=== PATIENT | male | born 1945 | race Two or more races ===

== ENCOUNTER → 2018-02-02 06:51 | Outpatient (CLI) | payer OTHER | END | disposition home or self-care (01) | LOC: LAB 06:51 | DX: D70.8 Other neutropenia (principal); D70.2 Other drug-induced agranulocytosis; D51.1 Vitamin B12 deficiency anemia due to selective vitamin B12 malabsorption with proteinuria; E55.9 Vitamin D deficiency, unspecified; F10.182 Alcohol abuse with alcohol-induced sleep disorder; K31.83 Achlorhydria; K76.1 Chronic passive congestion of liver; D50.8 Other iron deficiency anemias; D51.8 Other vitamin B12 deficiency anemias; I10 Essential (primary) hypertension; E03.8 Other specified hypothyroidism; K75.89 Other specified inflammatory liver diseases ==

== ENCOUNTER → 2018-03-27 06:37 | Outpatient (CLI) | payer OTHER | END | disposition home or self-care (01) | LOC: LAB 06:37 | DX: D70.8 Other neutropenia (principal); D70.2 Other drug-induced agranulocytosis; D51.1 Vitamin B12 deficiency anemia due to selective vitamin B12 malabsorption with proteinuria; E55.9 Vitamin D deficiency, unspecified; F10.182 Alcohol abuse with alcohol-induced sleep disorder; K31.83 Achlorhydria; K76.1 Chronic passive congestion of liver; K75.89 Other specified inflammatory liver diseases; N34.2 Other urethritis; C61 Malignant neoplasm of prostate; C18.9 Malignant neoplasm of colon, unspecified; C25.9 Malignant neoplasm of pancreas, unspecified; N40.1 Benign prostatic hyperplasia with lower urinary tract symptoms; F52.21 Male erectile disorder; R97.20 Elevated prostate specific antigen [PSA]; R31.9 Hematuria, unspecified ==

== ENCOUNTER 2018-03-30 08:45 | Outpatient (CLI) | payer OTHER | END 2018-03-30 08:49 | disposition home or self-care (01) | LOC: LAB 08:45 | DX: D51.1 Vitamin B12 deficiency anemia due to selective vitamin B12 malabsorption with proteinuria (principal) ==

== ENCOUNTER 2018-03-31 07:34 | Outpatient (CLI) | payer OTHER | END 2018-03-31 07:47 | disposition home or self-care (01) | LOC: TOM 07:34 | DX: D70.8 Other neutropenia (principal); D70.2 Other drug-induced agranulocytosis; D51.1 Vitamin B12 deficiency anemia due to selective vitamin B12 malabsorption with proteinuria; E55.9 Vitamin D deficiency, unspecified; F10.182 Alcohol abuse with alcohol-induced sleep disorder; K31.83 Achlorhydria; K76.1 Chronic passive congestion of liver; K75.9 Inflammatory liver disease, unspecified; R97.0 Elevated carcinoembryonic antigen [CEA] | CPT/HCPCS: 70450; 71270; 74178; Q9965 ==

== ENCOUNTER 2018-08-27 08:07 | Outpatient (CLI) | payer OTHER | END 2018-08-27 08:12 | disposition home or self-care (01) | LOC: LAB 08:07 | DX: I10 Essential (primary) hypertension (principal); R55 Syncope and collapse; A52.3 Neurosyphilis, unspecified; E03.8 Other specified hypothyroidism; E78.49 Other hyperlipidemia; R41.3 Other amnesia; E56.9 Vitamin deficiency, unspecified; M79.5 Residual foreign body in soft tissue ==

== ENCOUNTER 2018-09-02 07:53 | Outpatient (CLI) | payer OTHER | END 2018-09-02 09:11 | disposition home or self-care (01) | LOC: MRI 07:53 | DX: G30.1 Alzheimer's disease with late onset (principal) | CPT/HCPCS: 70551 ==

== ENCOUNTER 2018-12-08 07:26 | Outpatient (CLI) | payer OTHER | END 2018-12-08 07:45 | disposition home or self-care (01) | LOC: LAB 07:26 | DX: R63.4 Abnormal weight loss (principal); D70.2 Other drug-induced agranulocytosis; F10.182 Alcohol abuse with alcohol-induced sleep disorder; D51.1 Vitamin B12 deficiency anemia due to selective vitamin B12 malabsorption with proteinuria; K75.9 Inflammatory liver disease, unspecified; E55.9 Vitamin D deficiency, unspecified; D70.8 Other neutropenia; K31.83 Achlorhydria; K76.1 Chronic passive congestion of liver; D50.8 Other iron deficiency anemias; D51.8 Other vitamin B12 deficiency anemias; I10 Essential (primary) hypertension; E03.8 Other specified hypothyroidism; R97.8 Other abnormal tumor markers; R97.0 Elevated carcinoembryonic antigen [CEA]; N40.1 Benign prostatic hyperplasia with lower urinary tract symptoms; F52.21 Male erectile disorder ==

== ENCOUNTER 2018-12-18 07:07 | Outpatient (CLI) | payer OTHER | END 2018-12-18 07:16 | disposition home or self-care (01) | LOC: TOM 07:07 | DX: R91.1 Solitary pulmonary nodule (principal); R63.4 Abnormal weight loss; D70.2 Other drug-induced agranulocytosis; F10.182 Alcohol abuse with alcohol-induced sleep disorder; D51.1 Vitamin B12 deficiency anemia due to selective vitamin B12 malabsorption with proteinuria; K75.89 Other specified inflammatory liver diseases; E55.9 Vitamin D deficiency, unspecified; D70.8 Other neutropenia; K31.83 Achlorhydria; K76.1 Chronic passive congestion of liver | CPT/HCPCS: 71260; Q9965 ==

== ENCOUNTER → 2019-02-24 11:28 | Outpatient (CLI) | payer OTHER | END | disposition home or self-care (01) | LOC: LAB 11:28 | DX: E55.9 Vitamin D deficiency, unspecified (principal); Z12.11 Encounter for screening for malignant neoplasm of colon; Z12.9 Encounter for screening for malignant neoplasm, site unspecified ==

== ENCOUNTER 2019-06-23 07:11 | Outpatient (CLI) | payer OTHER | END 2019-06-23 15:29 | disposition home or self-care (01) | LOC: LAB 07:11 | DX: D70.2 Other drug-induced agranulocytosis (principal); R63.4 Abnormal weight loss; F10.182 Alcohol abuse with alcohol-induced sleep disorder; D51.1 Vitamin B12 deficiency anemia due to selective vitamin B12 malabsorption with proteinuria; K75.89 Other specified inflammatory liver diseases; E55.9 Vitamin D deficiency, unspecified; D70.8 Other neutropenia; K31.83 Achlorhydria; K76.1 Chronic passive congestion of liver; D51.8 Other vitamin B12 deficiency anemias; E03.8 Other specified hypothyroidism; C20 Malignant neoplasm of rectum; R97.0 Elevated carcinoembryonic antigen [CEA]; R91.1 Solitary pulmonary nodule; I10 Essential (primary) hypertension; D50.8 Other iron deficiency anemias; K90.89 Other intestinal malabsorption ==

== ENCOUNTER 2019-08-03 07:05 | Outpatient (CLI) | payer OTHER | END 2019-08-03 07:17 | disposition home or self-care (01) | LOC: LAB 07:05 | DX: F10.97 Alcohol use, unspecified with alcohol-induced persisting dementia (principal); D51.0 Vitamin B12 deficiency anemia due to intrinsic factor deficiency ==

== ENCOUNTER → 2019-08-19 | Outpatient (CLI) | payer OTHER | END | disposition home or self-care (01) | LOC: RX STUDY 08:03 | DX: R13.19 Other dysphagia (principal) ==

== ENCOUNTER 2020-02-19 18:54 | Inpatient (IN) | payer OTHER ==
[~2020-02-19] VITALS: Ht 167.6 cm; Wt 62.1 kg
[2020-02-19] MEDS ORDERED: COZAAR50 MG PO (19:09)
[2020-02-19] MEDS ORDERED: SYNTHROID50 MCG PO (19:09)
[2020-02-19] MEDS ORDERED: LOSARTAN POTASS50 MG (19:09)
[2020-02-24] MEDS ORDERED: TOPROL XL50 M1 PO (07:58)
[2020-02-24] MEDS ORDERED: ZYLOPRIM300 MG PO (07:58)
[2020-02-24] MEDS ORDERED: MEMANTINE HCL10 MG PO (07:58)
[2020-03-03] MEDS ORDERED: LOSARTAN POTASS50 MG PO (16:02)
[2020-03-03] MEDS ORDERED: Proventyl Hfa 200 ME IH (16:02)
[2020-03-03] MEDS ORDERED: NAMENDA10 MG PO (16:02)
[2020-03-03] MEDS ORDERED: CLONAZEPAM1 MG PO (16:02)
[2020-03-03] MEDS ORDERED: LEVOTHYROXINE50 MCG PO (16:02)
[2020-03-03] MEDS ORDERED: ZYLOPRIM100 M1 PO (16:02)
[2020-03-03] MEDS ORDERED: TOPROL XL50 M1 PO (16:02)
== END 2020-03-03 17:27 | disposition home or self-care (01) | DRG 194 ==
LOC: ER 18:54 → MEDJ 02-20 12:38 → SURH 02-24 12:57
PROVIDERS: ADMIT Internal Medicine; ATTEND Internal Medicine
PROC: BB24ZZZ Computerized Tomography (CT Scan) of Bilateral Lungs (ICD-10-PCS; principal; 2020-02-20)
PROC: 8E0ZXY6 Isolation (ICD-10-PCS; 2020-02-20)
PROC: 3E0F7GC Introduction of Other Therapeutic Substance into Respiratory Tract, Via Natural or Artificial Opening (ICD-10-PCS; 2020-02-23)
PROC: BW24YZZ Computerized Tomography (CT Scan) of Chest and Abdomen using Other Contrast (ICD-10-PCS; 2020-02-28)
DX: J18.9 Pneumonia, unspecified organism (principal); J91.8 Pleural effusion in other conditions classified elsewhere; R09.02 Hypoxemia; J44.9 Chronic obstructive pulmonary disease, unspecified; I10 Essential (primary) hypertension; E03.8 Other specified hypothyroidism; Z87.891 Personal history of nicotine dependence; D38.1 Neoplasm of uncertain behavior of trachea, bronchus and lung

== ENCOUNTER 2020-03-05 09:08 | Emergency (ER) | payer OTHER ==
[~2020-03-05] VITALS: Ht 167.6 cm; Wt 62.1 kg
[~2020-03-05 09:08] MED LIST: CLONAZEPAM1 MG PO; COZAAR50 MG PO; LEVOTHYROXINE50 MCG PO; LOSARTAN POTASS50 MG; LOSARTAN POTASS50 MG PO; MEMANTINE HCL10 MG PO; NAMENDA10 MG PO; Proventyl Hfa 200 ME IH; SYNTHROID50 MCG PO; TOPROL XL50 M1 PO; ZYLOPRIM100 M1 PO; ZYLOPRIM300 MG PO
== END 2020-03-05 13:37 | disposition home or self-care (01) ==
LOC: ER 09:08
DX: L03.213 Periorbital cellulitis (principal); H02.845 Edema of left lower eyelid; H02.844 Edema of left upper eyelid

== ENCOUNTER 2020-04-04 06:58 | Outpatient (CLI) | payer OTHER | END 2020-04-04 07:04 | disposition home or self-care (01) | LOC: LAB 06:58 | PROVIDERS: ATTEND Radiology Diagnostic Radiology | DX: N20.0 Calculus of kidney (principal) ==

== ENCOUNTER 2020-04-06 07:19 | Outpatient (CLI) | payer OTHER | END 2020-04-06 07:24 | disposition home or self-care (01) | LOC: TOM 07:19 | PROVIDERS: ATTEND Internal Medicine | DX: J44.1 Chronic obstructive pulmonary disease with (acute) exacerbation (principal); J18.1 Lobar pneumonia, unspecified organism | CPT/HCPCS: 71260; Q9965 ==

== ENCOUNTER 2020-06-15 12:31 | Outpatient (CLI) | payer OTHER | END 2020-06-15 15:54 | disposition home or self-care (01) | LOC: OFIC 805 12:31 | PROVIDERS: ATTEND Otolaryngology | DX: J98.8 Other specified respiratory disorders (principal); J16.8 Pneumonia due to other specified infectious organisms ==

== ENCOUNTER 2020-06-16 10:19 | Outpatient (CLI) | payer OTHER | END 2020-06-16 10:33 | disposition home or self-care (01) | LOC: TOM 10:19 | PROVIDERS: ATTEND Otolaryngology | DX: J34.89 Other specified disorders of nose and nasal sinuses (principal) ==

== ENCOUNTER → 2020-06-22 07:03 | Outpatient (CLI) | payer OTHER | END | disposition home or self-care (01) | LOC: LAB 07:03 | PROVIDERS: ATTEND Internal Medicine Hematology & Oncology | DX: D50.8 Other iron deficiency anemias (principal); I10 Essential (primary) hypertension; D69.6 Thrombocytopenia, unspecified; D51.8 Other vitamin B12 deficiency anemias; E55.9 Vitamin D deficiency, unspecified; E03.8 Other specified hypothyroidism; C25.9 Malignant neoplasm of pancreas, unspecified; R97.8 Other abnormal tumor markers; R97.0 Elevated carcinoembryonic antigen [CEA]; R97.20 Elevated prostate specific antigen [PSA]; R77.2 Abnormality of alphafetoprotein; D51.1 Vitamin B12 deficiency anemia due to selective vitamin B12 malabsorption with proteinuria; D70.2 Other drug-induced agranulocytosis; F10.182 Alcohol abuse with alcohol-induced sleep disorder; D70.8 Other neutropenia; R63.4 Abnormal weight loss; K31.83 Achlorhydria; K76.1 Chronic passive congestion of liver; R91.1 Solitary pulmonary nodule; G30.0 Alzheimer's disease with early onset ==

== ENCOUNTER 2020-06-27 09:53 | Outpatient (CLI) | payer OTHER | END 2020-06-27 11:00 | disposition home or self-care (01) | LOC: OFIC 805 09:53 | PROVIDERS: ATTEND Otolaryngology | DX: J34.2 Deviated nasal septum (principal); J98.8 Other specified respiratory disorders ==

== ENCOUNTER 2020-07-06 07:07 | Outpatient (CLI) | payer OTHER | END 2020-07-06 07:14 | disposition home or self-care (01) | LOC: LAB 07:07 | PROVIDERS: ATTEND Urology | DX: N40.1 Benign prostatic hyperplasia with lower urinary tract symptoms (principal); R97.20 Elevated prostate specific antigen [PSA]; F52.21 Male erectile disorder ==

== ENCOUNTER 2020-07-12 07:07 | Outpatient (CLI) | payer OTHER | END 2020-07-12 15:00 | disposition home or self-care (01) | LOC: LAB 07:07 | PROVIDERS: ATTEND Psychiatry & Neurology Psychiatry | DX: I11.9 Hypertensive heart disease without heart failure (principal); F10.26 Alcohol dependence with alcohol-induced persisting amnestic disorder; F10.282 Alcohol dependence with alcohol-induced sleep disorder; E53.8 Deficiency of other specified B group vitamins; E03.8 Other specified hypothyroidism; G31.89 Other specified degenerative diseases of nervous system ==

== ENCOUNTER 2020-08-10 12:59 | Outpatient (CLI) | payer OTHER | END 2020-08-10 13:02 | disposition home or self-care (01) | LOC: LAB 12:59 | PROVIDERS: ATTEND General Practice | DX: Z20.828 Contact with and (suspected) exposure to other viral communicable diseases (principal) ==

== ENCOUNTER 2020-11-15 09:46 | Outpatient (CLI) | payer OTHER | END 2020-11-15 09:50 | disposition home or self-care (01) | LOC: LAB 09:46 | PROVIDERS: ATTEND Urology | DX: N40.1 Benign prostatic hyperplasia with lower urinary tract symptoms (principal); F52.21 Male erectile disorder; R97.20 Elevated prostate specific antigen [PSA]; J18.8 Other pneumonia, unspecified organism; R13.19 Other dysphagia ==

== ENCOUNTER → 2020-12-05 07:10 | Outpatient (CLI) | payer OTHER | END | disposition home or self-care (01) | LOC: LAB 07:10 | PROVIDERS: ATTEND General Practice | DX: E03.8 Other specified hypothyroidism (principal); Z12.11 Encounter for screening for malignant neoplasm of colon; E11.65 Type 2 diabetes mellitus with hyperglycemia; E78.1 Pure hyperglyceridemia; E55.9 Vitamin D deficiency, unspecified; D53.1 Other megaloblastic anemias, not elsewhere classified; N40.0 Benign prostatic hyperplasia without lower urinary tract symptoms; I12.9 Hypertensive chronic kidney disease with stage 1 through stage 4 chronic kidney disease, or unspecified chronic kidney disease ==

== ENCOUNTER 2020-12-12 12:21 | Outpatient (CLI) | payer OTHER | END 2020-12-12 12:25 | disposition home or self-care (01) | LOC: LAB 12:21 | PROVIDERS: ATTEND General Practice | DX: Z12.11 Encounter for screening for malignant neoplasm of colon (principal); E11.65 Type 2 diabetes mellitus with hyperglycemia; E03.8 Other specified hypothyroidism; E78.1 Pure hyperglyceridemia; E55.9 Vitamin D deficiency, unspecified; D53.1 Other megaloblastic anemias, not elsewhere classified; N40.0 Benign prostatic hyperplasia without lower urinary tract symptoms; I12.9 Hypertensive chronic kidney disease with stage 1 through stage 4 chronic kidney disease, or unspecified chronic kidney disease ==

== ENCOUNTER 2021-02-13 06:54 | Outpatient (CLI) | payer OTHER | END 2021-02-13 06:59 | disposition home or self-care (01) | LOC: LAB 06:54 | PROVIDERS: ATTEND Internal Medicine | DX: M54.5 Low back pain (principal); I10 Essential (primary) hypertension; E78.89 Other lipoprotein metabolism disorders; E11.51 Type 2 diabetes mellitus with diabetic peripheral angiopathy without gangrene; E55.9 Vitamin D deficiency, unspecified; G30.8 Other Alzheimer's disease; F41.8 Other specified anxiety disorders; G31.89 Other specified degenerative diseases of nervous system; R09.02 Hypoxemia; J44.9 Chronic obstructive pulmonary disease, unspecified; E02 Subclinical iodine-deficiency hypothyroidism; R13.13 Dysphagia, pharyngeal phase ==

== ENCOUNTER → 2021-03-05 07:37 | Outpatient (CLI) | payer OTHER | END | disposition home or self-care (01) | LOC: LAB 07:37 | PROVIDERS: ATTEND Internal Medicine Hematology & Oncology | DX: D50.8 Other iron deficiency anemias (principal); I10 Essential (primary) hypertension; D69.6 Thrombocytopenia, unspecified; E55.9 Vitamin D deficiency, unspecified; E03.8 Other specified hypothyroidism; C25.9 Malignant neoplasm of pancreas, unspecified; R97.8 Other abnormal tumor markers; R97.0 Elevated carcinoembryonic antigen [CEA]; R77.2 Abnormality of alphafetoprotein; D68.8 Other specified coagulation defects ==

== ENCOUNTER 2021-05-28 07:24 | Outpatient (CLI) | payer OTHER | END 2021-05-28 07:25 | disposition home or self-care (01) | LOC: LAB 07:24 | PROVIDERS: ATTEND Internal Medicine | DX: I10 Essential (primary) hypertension (principal); M54.5 Low back pain; E78.89 Other lipoprotein metabolism disorders; E11.51 Type 2 diabetes mellitus with diabetic peripheral angiopathy without gangrene; E55.9 Vitamin D deficiency, unspecified; G30.8 Other Alzheimer's disease; F41.8 Other specified anxiety disorders; G31.89 Other specified degenerative diseases of nervous system; R09.02 Hypoxemia; E02 Subclinical iodine-deficiency hypothyroidism; R13.13 Dysphagia, pharyngeal phase ==

== ENCOUNTER 2021-06-20 15:41 | Outpatient (CLI) | payer OTHER | END 2021-06-20 15:52 | disposition home or self-care (01) | LOC: LAB 15:41 | PROVIDERS: ATTEND Urology | DX: R97.20 Elevated prostate specific antigen [PSA] (principal) ==

== ENCOUNTER 2021-08-08 07:09 | Outpatient (CLI) | payer OTHER | END 2021-08-08 07:16 | disposition home or self-care (01) | LOC: SONOGRAMA 07:09 | PROVIDERS: ATTEND Urology | DX: C61 Malignant neoplasm of prostate (principal); R97.20 Elevated prostate specific antigen [PSA]; D29.1 Benign neoplasm of prostate ==

== ENCOUNTER 2021-08-27 07:51 | Outpatient (CLI) | payer OTHER | END 2021-08-27 07:53 | disposition home or self-care (01) | LOC: LAB 07:51 | PROVIDERS: ATTEND Urology | DX: C61 Malignant neoplasm of prostate (principal) ==

== ENCOUNTER 2021-08-29 07:57 | Outpatient (CLI) | payer OTHER | END 2021-08-29 08:04 | disposition home or self-care (01) | LOC: TOM 07:57 | PROVIDERS: ATTEND Urology | DX: K57.90 Diverticulosis of intestine, part unspecified, without perforation or abscess without bleeding (principal); N40.1 Benign prostatic hyperplasia with lower urinary tract symptoms; F52.21 Male erectile disorder; K65.8 Other peritonitis | CPT/HCPCS: 74177; Q9965 ==

== ENCOUNTER 2021-09-06 07:29 | Outpatient (CLI) | payer OTHER | END 2021-09-06 07:30 | disposition home or self-care (01) | LOC: NUCLEAR 07:29 | PROVIDERS: ATTEND Urology | DX: C61 Malignant neoplasm of prostate (principal); N40.1 Benign prostatic hyperplasia with lower urinary tract symptoms; F52.21 Male erectile disorder | CPT/HCPCS: 78803; A9503 ==

== ENCOUNTER 2021-11-06 08:08 | Outpatient (CLI) | payer OTHER | END 2021-11-06 08:43 | disposition home or self-care (01) | LOC: RAD 08:08 | PROVIDERS: ATTEND Internal Medicine Pulmonary Disease | DX: J45.20 Mild intermittent asthma, uncomplicated (principal) ==

== ENCOUNTER 2021-11-30 07:06 | Outpatient (CLI) | payer OTHER | END 2021-11-30 13:19 | disposition home or self-care (01) | LOC: LAB 07:06 | PROVIDERS: ATTEND Internal Medicine Hematology & Oncology | DX: D50.8 Other iron deficiency anemias (principal); R79.9 Abnormal finding of blood chemistry, unspecified; I10 Essential (primary) hypertension; R74.02 Elevation of levels of lactic acid dehydrogenase [LDH]; K76.89 Other specified diseases of liver; D51.8 Other vitamin B12 deficiency anemias; E55.9 Vitamin D deficiency, unspecified; E03.8 Other specified hypothyroidism; D68.8 Other specified coagulation defects; C25.0 Malignant neoplasm of head of pancreas; C25.9 Malignant neoplasm of pancreas, unspecified; R97.8 Other abnormal tumor markers; R97.0 Elevated carcinoembryonic antigen [CEA]; R97.20 Elevated prostate specific antigen [PSA]; R77.2 Abnormality of alphafetoprotein; D51.1 Vitamin B12 deficiency anemia due to selective vitamin B12 malabsorption with proteinuria; D70.2 Other drug-induced agranulocytosis; K75.9 Inflammatory liver disease, unspecified; D70.8 Other neutropenia; R63.4 Abnormal weight loss; K31.83 Achlorhydria; K76.1 Chronic passive congestion of liver; R91.1 Solitary pulmonary nodule; G30.0 Alzheimer's disease with early onset; F10.26 Alcohol dependence with alcohol-induced persisting amnestic disorder; K22.0 Achalasia of cardia ==

== ENCOUNTER 2022-02-20 10:57 | Outpatient (CLI) | payer OTHER | END 2022-02-20 11:01 | disposition home or self-care (01) | LOC: LAB 10:57 | PROVIDERS: ATTEND Psychiatry & Neurology Neurology | DX: R41.3 Other amnesia (principal); R42 Dizziness and giddiness; E78.2 Mixed hyperlipidemia; D64.9 Anemia, unspecified ==

== ENCOUNTER 2022-02-28 10:48 | Outpatient (CLI) | payer OTHER | END 2022-02-28 10:58 | disposition home or self-care (01) | LOC: PPH VACUNA 10:48 | PROVIDERS: ATTEND Emergency Medicine Pediatric Emergency Medicine | DX: Z23 Encounter for immunization (principal) ==

== ENCOUNTER 2022-03-11 06:56 | Outpatient (CLI) | payer OTHER | END 2022-03-11 07:05 | disposition home or self-care (01) | LOC: LAB 06:56 | PROVIDERS: ATTEND Internal Medicine Hematology & Oncology | DX: C61 Malignant neoplasm of prostate (principal); D51.1 Vitamin B12 deficiency anemia due to selective vitamin B12 malabsorption with proteinuria; D70.2 Other drug-induced agranulocytosis; K75.9 Inflammatory liver disease, unspecified; F10.182 Alcohol abuse with alcohol-induced sleep disorder; E55.9 Vitamin D deficiency, unspecified; D70.8 Other neutropenia; R63.4 Abnormal weight loss; K31.83 Achlorhydria; K76.1 Chronic passive congestion of liver; R91.1 Solitary pulmonary nodule; G30.0 Alzheimer's disease with early onset; K22.0 Achalasia of cardia; D50.8 Other iron deficiency anemias; I10 Essential (primary) hypertension; R74.02 Elevation of levels of lactic acid dehydrogenase [LDH]; K76.89 Other specified diseases of liver; D51.8 Other vitamin B12 deficiency anemias; R79.9 Abnormal finding of blood chemistry, unspecified; E03.8 Other specified hypothyroidism; R97.0 Elevated carcinoembryonic antigen [CEA]; R97.8 Other abnormal tumor markers; R97.20 Elevated prostate specific antigen [PSA] ==

== ENCOUNTER 2022-05-03 13:35 | Outpatient (CLI) | payer OTHER | END 2022-05-03 13:39 | disposition home or self-care (01) | LOC: RAD 13:35 | PROVIDERS: ATTEND Internal Medicine Pulmonary Disease | DX: J45.20 Mild intermittent asthma, uncomplicated (principal) ==

== ENCOUNTER 2022-07-06 07:34 | Outpatient (CLI) | payer OTHER | END 2022-07-06 07:35 | disposition home or self-care (01) | LOC: LAB 07:34 | PROVIDERS: ATTEND Internal Medicine Hematology & Oncology | DX: D50.8 Other iron deficiency anemias (principal); R79.9 Abnormal finding of blood chemistry, unspecified; I10 Essential (primary) hypertension; R74.02 Elevation of levels of lactic acid dehydrogenase [LDH]; K76.89 Other specified diseases of liver; D51.8 Other vitamin B12 deficiency anemias; R97.0 Elevated carcinoembryonic antigen [CEA]; E03.8 Other specified hypothyroidism; R97.8 Other abnormal tumor markers; R97.20 Elevated prostate specific antigen [PSA]; C61 Malignant neoplasm of prostate; D70.2 Other drug-induced agranulocytosis ==

== ENCOUNTER → 2022-11-04 07:30 | Outpatient (CLI) | payer OTHER | END | disposition home or self-care (01) | LOC: LAB 07:30 | PROVIDERS: ATTEND Internal Medicine Hematology & Oncology | DX: D50.8 Other iron deficiency anemias (principal); R79.9 Abnormal finding of blood chemistry, unspecified; I10 Essential (primary) hypertension; R74.02 Elevation of levels of lactic acid dehydrogenase [LDH]; K76.89 Other specified diseases of liver; D51.8 Other vitamin B12 deficiency anemias; E03.8 Other specified hypothyroidism; R97.0 Elevated carcinoembryonic antigen [CEA]; R97.8 Other abnormal tumor markers; R97.20 Elevated prostate specific antigen [PSA]; D63.1 Anemia in chronic kidney disease; C61 Malignant neoplasm of prostate; D63.0 Anemia in neoplastic disease; D51.1 Vitamin B12 deficiency anemia due to selective vitamin B12 malabsorption with proteinuria; D70.2 Other drug-induced agranulocytosis; K75.9 Inflammatory liver disease, unspecified; F10.182 Alcohol abuse with alcohol-induced sleep disorder; E55.9 Vitamin D deficiency, unspecified; D70.8 Other neutropenia; R63.4 Abnormal weight loss; K31.83 Achlorhydria; K76.1 Chronic passive congestion of liver; R91.1 Solitary pulmonary nodule; G30.0 Alzheimer's disease with early onset; K22.0 Achalasia of cardia; K22.89 Other specified disease of esophagus; D64.89 Other specified anemias ==

== ENCOUNTER 2023-05-21 08:03 | Outpatient (CLI) | payer OTHER | END 2023-05-21 08:10 | disposition home or self-care (01) | LOC: RAD 08:03 | PROVIDERS: ATTEND Internal Medicine Pulmonary Disease | DX: J45.20 Mild intermittent asthma, uncomplicated (principal); R05.8 Other specified cough ==

== ENCOUNTER 2023-06-10 07:24 | Outpatient (CLI) | payer OTHER | END 2023-06-10 08:45 | disposition home or self-care (01) | LOC: LAB 07:24 | PROVIDERS: ATTEND Internal Medicine Hematology & Oncology | DX: C61 Malignant neoplasm of prostate (principal); D63.0 Anemia in neoplastic disease; D51.1 Vitamin B12 deficiency anemia due to selective vitamin B12 malabsorption with proteinuria; D70.2 Other drug-induced agranulocytosis; K75.9 Inflammatory liver disease, unspecified; E55.9 Vitamin D deficiency, unspecified; D70.8 Other neutropenia; R63.4 Abnormal weight loss; K31.83 Achlorhydria; K76.1 Chronic passive congestion of liver; G30.0 Alzheimer's disease with early onset; F10.26 Alcohol dependence with alcohol-induced persisting amnestic disorder; F10.282 Alcohol dependence with alcohol-induced sleep disorder; D50.8 Other iron deficiency anemias; R79.9 Abnormal finding of blood chemistry, unspecified; I10 Essential (primary) hypertension; R74.02 Elevation of levels of lactic acid dehydrogenase [LDH]; K76.89 Other specified diseases of liver; D53.1 Other megaloblastic anemias, not elsewhere classified; E03.8 Other specified hypothyroidism; R97.0 Elevated carcinoembryonic antigen [CEA]; R97.8 Other abnormal tumor markers; R97.20 Elevated prostate specific antigen [PSA]; K22.0 Achalasia of cardia; K22.89 Other specified disease of esophagus ==

== ENCOUNTER → 2023-10-15 07:21 | Outpatient (CLI) | payer OTHER ==
[2023-10-15 08:47] LABS: HEMATOCRIT 32.3 % (39.0-48.0); HEMOGLOBIN 10.9 g/dL (13-16.00); MEAN CELL VOLUME 93.7 fL (80.0-100.00); MEAN CORPUSCULAR HEMOGLOBIN 31.8 pg (27.00-32.0); MEAN CORPUSCULAR HGB CONC 33.9 g/dl (32.0-36.0); PLATELET COUNT 170 K/uL (150-450); RED BLOOD COUNT 3.44 M/uL (4.00-6.00)
[2023-10-15 09:24] LABS: ALBUMIN 3.5 gm/dL (3.4-5.0); ALKALINE PHOSPHATASE 66 U/L (50-136); ALT/SGPT 35 U/L (12-78); ANION GAP 6 (10.0-20.0); AST/SGOT 27 U/L (15-37); BILIRUBIN TOTAL 0.46 mg/dL (0.3-1.2); BLOOD UREA NITROGEN 23 mg/dL (7-18); BUN CREA RATIO 22 (7.0-25.0); CALCIUM 9.3 mg/dL (8.5-10.1); CARBON DIOXIDE 34 mEq/L (21-32); CHLORIDE 107 mmol/L (98-107); CREATININE SERUM 1.03 mg/dL (0.70-1.30); FERRITIN 287.1 NG/ML (26-388); GFR 69.84; GLOBULINA 3.2 G/DL (2.4-3.5); GLUCOSE FASTING 106 mg/dL (65-100); LDH 280 U/L (87-241); OSMOLALITY SERUM 287 MOSM/KG (275-295); POTASSIUM 4.85 mEq/L (3.5-5.1); SODIUM 142 mmol/L (136-145); T4 FREE 1.23 NG/ML (0.76-1.46); TOTAL IRON BINDING CAPACITY 228 ug/dl (250-450); TOTAL PROTEIN 6.7 gm/dL (6.4-8.2)
[2023-10-15 09:26] LABS: PROSTATIC SPECIFIC ANTIGEN < 0.010 NG/ML (0.010-4.00)
[2023-10-15 10:23] LABS: MANUAL PLATELET COUNT 302
[2023-10-15 10:25] LABS: PLATELET ESTIMATE NORMAL (NORMAL)
[2023-10-15 11:21] LABS: FOLIC ACID > 20.00 ng/ml (4.78-20)
[2023-10-16 16:10] LABS: ERYTHROPOIETIN 8.7 mIU/mL (2.6-18.5)
== END | disposition home or self-care (01) ==
LOC: LAB 07:21
PROVIDERS: ATTEND Internal Medicine Hematology & Oncology
DX: D50.8 Other iron deficiency anemias (principal); R79.9 Abnormal finding of blood chemistry, unspecified; I10 Essential (primary) hypertension; R74.02 Elevation of levels of lactic acid dehydrogenase [LDH]; K76.89 Other specified diseases of liver; D63.1 Anemia in chronic kidney disease; E03.8 Other specified hypothyroidism; R97.0 Elevated carcinoembryonic antigen [CEA]; R97.8 Other abnormal tumor markers; R97.20 Elevated prostate specific antigen [PSA]

== ENCOUNTER 2024-07-14 07:17 | Outpatient (CLI) | payer OTHER ==
[2024-07-14 08:15] LABS: HEMATOCRIT 33.1 % (39.0-48.0); HEMOGLOBIN 11.2 g/dL (13-16.00); MEAN CELL VOLUME 94.9 fL (80.0-100.00); MEAN CORPUSCULAR HEMOGLOBIN 32.3 pg (27.00-32.0); PLATELET COUNT 170 K/uL (150-450); RED BLOOD COUNT 3.48 M/uL (4.00-6.00); RED CELL DISTRIBUTION WIDTH 13.5 % (11.5-14.5)
[2024-07-14 09:13] LABS: ALBUMIN 3.6 gm/dL (3.4-5.0); BILIRUBIN TOTAL 0.52 mg/dL (0.3-1.2); CALCIUM 8.9 mg/dL (8.5-10.1); CHOL HDL RATIO 3.4 (0-5.0); CREATININE SERUM 1.06 mg/dL (0.70-1.30); GFR 67.39; GLOBULINA 3.1 G/DL (2.4-3.5); POTASSIUM 4.86 mEq/L (3.5-5.1); T4 TOTAL 7.58 UG/DL (4.5-12.1); TOTAL PROTEIN 6.7 gm/dL (6.4-8.2); TSH 1.56 uIU/mL (0.358-3.74)
[2024-07-14 09:20] LABS: FOLIC ACID > 20.00 ng/ml (4.78-20); T3 TOTAL 0.635 ng/ml (0.846-2.02)
[2024-07-15 09:08] LABS: HOMOCYSTEINE 11.5 umol/L (0.0-19.2)
== END 2024-07-14 07:22 | disposition home or self-care (01) ==
LOC: LAB 07:17
PROVIDERS: ATTEND Psychiatry & Neurology Neurology
DX: R79.9 Abnormal finding of blood chemistry, unspecified (principal); D64.9 Anemia, unspecified; I42.9 Cardiomyopathy, unspecified; E78.9 Disorder of lipoprotein metabolism, unspecified; E07.9 Disorder of thyroid, unspecified; E55.9 Vitamin D deficiency, unspecified; D51.0 Vitamin B12 deficiency anemia due to intrinsic factor deficiency; D52.9 Folate deficiency anemia, unspecified; E78.2 Mixed hyperlipidemia; M79.10 Myalgia, unspecified site; A64 Unspecified sexually transmitted disease; R59.9 Enlarged lymph nodes, unspecified

== ENCOUNTER 2024-07-14 08:06 | Outpatient (CLI) | payer OTHER | END 2024-07-14 08:19 | disposition home or self-care (01) | LOC: MRI 08:06 | PROVIDERS: ATTEND Psychiatry & Neurology Neurology | DX: R41.3 Other amnesia (principal) | CPT/HCPCS: 70551 ==

== ENCOUNTER 2024-07-23 08:38 | Outpatient (CLI) | payer OTHER | END 2024-07-23 08:40 | disposition home or self-care (01) | LOC: NUCLEAR 08:38 | PROVIDERS: ATTEND Internal Medicine | DX: I50.9 Heart failure, unspecified (principal) ==

== ENCOUNTER → 2024-10-28 07:42 | Outpatient (CLI) | payer OTHER ==
[2024-10-28 08:38] LABS: HEMATOCRIT 34.9 % (39.0-48.0); HEMOGLOBIN 11.8 g/dL (13-16.00); MEAN CELL VOLUME 94.1 fL (80.0-100.00); MEAN CORPUSCULAR HEMOGLOBIN 31.8 pg (27.00-32.0); MEAN CORPUSCULAR HGB CONC 33.8 g/dl (32.0-36.0); PLATELET COUNT 178 K/uL (150-450); RED BLOOD COUNT 3.71 M/uL (4.00-6.00); RED CELL DISTRIBUTION WIDTH 14.1 % (11.5-14.5)
[2024-10-28 09:24] LABS: ALBUMIN 3.6 gm/dL (3.4-5.0); BILIRUBIN TOTAL 0.57 mg/dL (0.3-1.2); CALCIUM 9.3 mg/dL (8.5-10.1); CREATININE SERUM 1.06 mg/dL (0.70-1.30); GFR 67.39; GLOBULINA 3.1 G/DL (2.4-3.5); POTASSIUM 4.58 mEq/L (3.5-5.1); PROSTATIC SPECIFIC ANTIGEN 0.077 NG/ML (0.010-4.00); T4 FREE 1.05 NG/ML (0.76-1.46); TOTAL PROTEIN 6.7 gm/dL (6.4-8.2); TSH 1.69 uIU/mL (0.358-3.74)
[2024-10-28 10:15] LABS: MANUAL PLATELET COUNT 274
[2024-10-28 10:32] LABS: FOLIC ACID > 20.00 ng/ml (4.78-20); VITAMIN D3 25 HYDROXY 46.07 ng/ml (30-120)
== END | disposition home or self-care (01) ==
LOC: LAB 07:42
PROVIDERS: ATTEND Internal Medicine Hematology & Oncology
DX: C61 Malignant neoplasm of prostate (principal); D63.0 Anemia in neoplastic disease; D51.1 Vitamin B12 deficiency anemia due to selective vitamin B12 malabsorption with proteinuria; D70.2 Other drug-induced agranulocytosis; K75.9 Inflammatory liver disease, unspecified; E55.9 Vitamin D deficiency, unspecified; D70.8 Other neutropenia; R63.4 Abnormal weight loss; K31.83 Achlorhydria; K76.1 Chronic passive congestion of liver; R91.1 Solitary pulmonary nodule; G30.0 Alzheimer's disease with early onset; F10.26 Alcohol dependence with alcohol-induced persisting amnestic disorder; F10.282 Alcohol dependence with alcohol-induced sleep disorder; K22.0 Achalasia of cardia; K22.89 Other specified disease of esophagus; D64.89 Other specified anemias; D50.8 Other iron deficiency anemias; R79.9 Abnormal finding of blood chemistry, unspecified; I10 Essential (primary) hypertension; R74.02 Elevation of levels of lactic acid dehydrogenase [LDH]; K76.89 Other specified diseases of liver; D51.8 Other vitamin B12 deficiency anemias; R97.0 Elevated carcinoembryonic antigen [CEA]

== ENCOUNTER 2025-01-11 10:24 | Outpatient (CLI) | payer OTHER | END 2025-01-11 10:26 | disposition home or self-care (01) | LOC: RAD 10:24 | PROVIDERS: ATTEND General Practice | DX: J44.9 Chronic obstructive pulmonary disease, unspecified (principal) ==

== ENCOUNTER → 2025-05-16 07:28 | Outpatient (CLI) | payer OTHER ==
[2025-05-16 08:13] LABS: BASO % 0.9 % (0.1-1.2); EOS # 0.29 (0.04-0.54); EOS % 4.1 % (0.7-7.0); LYMPH # 2.20 (1.18-3.74); LYMPH % 31.3 % (19.3-53.1); MEAN PLATELET VOLUME 11.00 fl (9.4-12.4); MONO # 0.61 (0.24-0.82); MONO % 8.7 % (4.7-12.5); NEUT # 3.85 (1.56-6.13); NEUT % 54.6 % (34.0-71.1); RED CELL DISTRIBUTION WIDTH 13.4 % (11.6-14.4)
[2025-05-16 10:02] LABS: GLUCOSE FASTING 85.0 mg/dL (65-100)
[2025-05-16 10:03] LABS: ALT/SGPT 23.0 U/L (12-78); AST/SGOT 19.0 U/L (15-37); BILIRUBIN TOTAL 0.7 mg/dL (0.3-1.2); BUN CREA RATIO 29.0 (7.0-25.0); CREATININE SERUM 1.04 mg/dL (0.70-1.30); GFR 68.71; GLOBULINA 3.7 G/DL (2.4-3.5); OSMOLALITY SERUM 289.0 MOSM/KG (275-295)
[2025-05-16 10:04] LABS: FE 60.0 ug/dl (65-175); LDH 209.0 U/L (87-241); PROSTATIC SPECIFIC ANTIGEN 0.08 NG/ML (0.010-4.00); T4 FREE 1.03 NG/ML (0.76-1.46); TSH 1.82 uIU/mL (0.358-3.74)
[2025-05-16 14:52] LABS: FOLIC ACID > 20.00 ng/ml (4.78-20); VITAMIN D3 25 HYDROXY 54.80 ng/ml (30-120)
== END | disposition home or self-care (01) ==
LOC: LAB 07:28
PROVIDERS: ATTEND Internal Medicine Hematology & Oncology
DX: C61 Malignant neoplasm of prostate (principal); D63.0 Anemia in neoplastic disease; D51.1 Vitamin B12 deficiency anemia due to selective vitamin B12 malabsorption with proteinuria; D70.2 Other drug-induced agranulocytosis; K75.9 Inflammatory liver disease, unspecified; F10.182 Alcohol abuse with alcohol-induced sleep disorder; E55.9 Vitamin D deficiency, unspecified; D70.8 Other neutropenia; R63.4 Abnormal weight loss; K31.83 Achlorhydria; K76.1 Chronic passive congestion of liver; R91.1 Solitary pulmonary nodule; G30.0 Alzheimer's disease with early onset; K22.0 Achalasia of cardia; D64.89 Other specified anemias; D50.8 Other iron deficiency anemias; R79.9 Abnormal finding of blood chemistry, unspecified; I10 Essential (primary) hypertension; R74.02 Elevation of levels of lactic acid dehydrogenase [LDH]; K76.89 Other specified diseases of liver; E03.8 Other specified hypothyroidism; R97.0 Elevated carcinoembryonic antigen [CEA]

== ENCOUNTER 2025-08-27 07:19 | Outpatient (CLI) | payer OTHER ==
[2025-08-27 08:28] LABS: BASO % 0.8 % (0.1-1.2); EOS # 0.30 (0.04-0.54); EOS % 3.9 % (0.7-7.0); LYMPH # 2.57 (1.18-3.74); LYMPH % 33.7 % (19.3-53.1); MEAN PLATELET VOLUME 10.60 fl (9.4-12.4); MONO # 0.74 (0.24-0.82); MONO % 9.7 % (4.7-12.5); NEUT # 3.93 (1.56-6.13); NEUT % 51.6 % (34.0-71.1); RED CELL DISTRIBUTION WIDTH 13.1 % (11.6-14.4)
[2025-08-27 09:28] LABS: ALT/SGPT 20.0 U/L (12-78); AST/SGOT 17.0 U/L (15-37); BILIRUBIN TOTAL 0.43 mg/dL (0.3-1.2); BUN CREA RATIO 31.0 (7.0-25.0); CREATININE SERUM 0.96 mg/dL (0.70-1.30); GFR 75.36; GLOBULINA 3.3 G/DL (2.4-3.5); GLUCOSE FASTING 101.0 mg/dL (65-100); LDH 196.0 U/L (87-241); OSMOLALITY SERUM 289.0 MOSM/KG (275-295); PROSTATIC SPECIFIC ANTIGEN 0.086 NG/ML (0.010-4.00); T4 FREE 1.14 NG/ML (0.76-1.46); TSH 1.75 uIU/mL (0.358-3.74)
== END 2025-08-27 23:00 | disposition home or self-care (01) ==
LOC: LAB 07:19
PROVIDERS: ATTEND Internal Medicine Hematology & Oncology
DX: D50.8 Other iron deficiency anemias (principal); I10 Essential (primary) hypertension; R74.02 Elevation of levels of lactic acid dehydrogenase [LDH]; K76.89 Other specified diseases of liver; E03.8 Other specified hypothyroidism; R97.0 Elevated carcinoembryonic antigen [CEA]; C61 Malignant neoplasm of prostate; D63.0 Anemia in neoplastic disease; D51.1 Vitamin B12 deficiency anemia due to selective vitamin B12 malabsorption with proteinuria; D70.2 Other drug-induced agranulocytosis; K75.9 Inflammatory liver disease, unspecified; E55.9 Vitamin D deficiency, unspecified; D70.9 Neutropenia, unspecified; R63.4 Abnormal weight loss; K31.83 Achlorhydria; K76.1 Chronic passive congestion of liver; R91.1 Solitary pulmonary nodule; G30.0 Alzheimer's disease with early onset; F10.26 Alcohol dependence with alcohol-induced persisting amnestic disorder; F10.282 Alcohol dependence with alcohol-induced sleep disorder; K22.0 Achalasia of cardia; D64.89 Other specified anemias

== ENCOUNTER 2025-09-02 07:38 | Outpatient (CLI) | payer OTHER | END 2025-09-02 07:40 | disposition home or self-care (01) | LOC: MRI 07:38 | PROVIDERS: ATTEND Internal Medicine Hematology & Oncology | DX: C61 Malignant neoplasm of prostate (principal); D63.0 Anemia in neoplastic disease; D51.1 Vitamin B12 deficiency anemia due to selective vitamin B12 malabsorption with proteinuria; D70.2 Other drug-induced agranulocytosis; K75.9 Inflammatory liver disease, unspecified; E55.9 Vitamin D deficiency, unspecified; D70.8 Other neutropenia; R63.4 Abnormal weight loss; K31.83 Achlorhydria; K76.1 Chronic passive congestion of liver; R91.1 Solitary pulmonary nodule; G30.0 Alzheimer's disease with early onset; F10.26 Alcohol dependence with alcohol-induced persisting amnestic disorder; F10.282 Alcohol dependence with alcohol-induced sleep disorder; K22.0 Achalasia of cardia; D64.89 Other specified anemias | CPT/HCPCS: 74183; Q9965 ==